=== PATIENT | male | born 1960 | race Two or more races ===

== ENCOUNTER 2025-02-21 21:59 | Emergency (ER) | payer OTHER ==
[~2025-02-21] VITALS: Ht 182.9 cm; Wt 76.2 kg
[2025-02-21] MEDS ORDERED: ACETAMINOPHEN ES 500 MG TABLET ONE (22:22)
[2025-02-21] MEDS: ACETAMINOPHEN 325 MG TABLET PO ONE (22:28)
[2025-02-21 23:06] LABS: APPEARANCE,URINE TURBID (CLEAR); BILIRUBIN,URINE NEGATIVE (NEGATIVE); BLOOD, URINE 3+ Ery/uL (NEGATIVE); COLOR,URINE YELLOW (YELLOW); KETONES,URINE NEGATIVE (NEGATIVE); LEUKOCYTE ESTERASE ,URINE 2+ (NEGATIVE); NITRITE, URINE POSITIVE (NEGATIVE); PH,URINE 7.5 (5.0-8.0); PROTEIN,URINE 3+ mg/dl (NEGATIVE); UGLUCOSE NEGATIVE (NEGATIVE)
[2025-02-21] MEDS ORDERED: CIPR-262 PO (23:13)
[2025-02-21] MEDS ORDERED: CIPROFLOXACIN HCL 500 MG TABLET ONE (23:16)
[2025-02-21] MEDS: CIPROFLOXACIN HCL 500 MG TABLET PO ONE (23:22)
[2025-02-21 23:35] LABS: ADD URINE CULTURE YES; BACTERIA,URINE Many /HPF (None Seen); WBC,URINE TOO NUMEROUS TO COUN /HPF (0-3)
[2025-02-21 23:43] VITALS: BP 125/80; TEMP 98; O2SAT 99
== END 2025-02-21 23:44 | disposition home or self-care (01) ==
LOC: ER 22:17
DX: N39.0 Urinary tract infection, site not specified (principal); R50.9 Fever, unspecified; E11.9 Type 2 diabetes mellitus without complications
CPT/HCPCS: 81001; 87086-TC; 87186-TC